=== PATIENT | male | born 1950 ===

== ENCOUNTER → 2018-08-13 19:44 | Outpatient (REF) | payer MEDICARE, SELFPAY ==
[2018-08-13 20:03] LABS: Add Manual Diff / Slide Review NO; Basophils Percent Auto 0.5 % (0-2); Eosinophils Percent Auto 1.2 % (2-4); Hematocrit 48.6 % (41-53); Hemoglobin 16.2 g/dL (13.5-17.5); Lymphocytes Percent Auto 20.1 % (25-40); Mean Corpuscular HGB Conc 33.3 % (30-36); Mean Corpuscular Hemoglobin 31.2 PG (26-34); Mean Corpuscular Volume 93.7 fL (80-100); Monocytes Percent Auto 10.7 % (3-14); Neutrophils Absolute Auto 4800 /uL (3000-5900); Neutrophils Percent Auto 67.5 % (50-75); Platelet Count 305 X10^3/uL (150-400); Red Blood Cell Count 5.18 X10^6/uL (4.5-5.9); Red Cell Distribution Width 14.2 % (11.6-14.8); White Blood Cell Count 7.2 X10^3/uL (4.5-11.0)
[2018-08-13 20:15] LABS: Hemoglobin A1C% w Est Avg Glu 5.4 % (4.0-6.0)
[2018-08-13 20:16] LABS: Alanine Aminotransferase 21 IU/L (21-72); Albumin 4.6 g/dL (3.5-5.0); Albumin Globulin Ratio 1.6 (1.0-2.8); Alkaline Phosphatase 57 U/L (38-126); Amylase 49 U/L (30-110); Aspartate Aminotransferase 25 IU/L (17-59); BUN Creatinine Ratio 15.6 (6-22); Bilirubin Total 0.7 mg/dL (0.2-1.3); Blood Urea Nitrogen 14 mg/dL (9-20); Calcium 9.5 mg/dL (8.4-10.2); Carbon Dioxide 28 mmol/L (22-32); Chloride 102 mmol/L (98-107); Cholesterol 191 mg/dL (140-199); Estimated Glomerular Filt Rate > 60.0 mL/min (>60); Globulin 2.8 g/dL (1.7-4.1); Glucose 100 mg/dL (80-110); HDL Cholesterol 53 mg/dL (40-60); HEMOLYSIS < 15 (0-50); LDL Cholesterol Calculated 118 mg/dL (<100); Sodium 141 mmol/L (137-145); Total Protein 7.4 g/dL (6.3-8.2); Triglycerides 101 mg/dL (35-150)
[2018-08-13 20:20] LABS: High Sensitivity CRP - Cardiac 1.7 mg/L (1.0-3.0)
[2018-08-13 20:35] LABS: Free T4, Direct Thyroxine 0.94 ng/dL (0.78-2.19)
[2018-08-13 20:48] LABS: Prostate Specific Antigen 0.485 ng/mL (0.10-4.00)
[2018-08-13 20:49] LABS: Thyroid Stimulating Hormone 1.89 uIU/mL (0.47-4.68)
== END ==
LOC: LAB 19:44
PROVIDERS: Visit Provider Nurse Practitioner Acute Care
DX: E29.1 Testicular hypofunction (principal); R53.81 Other malaise; R63.4 Abnormal weight loss; Z82.49 Family history of ischemic heart disease and other diseases of the circulatory system; R06.02 Shortness of breath; E03.9 Hypothyroidism, unspecified
CPT/HCPCS: 80053; 80061; 82150; 83036; 84153; 84439; 84443; 85025; 86140